=== PATIENT | male | born 1980 | race Asian ===

== ENCOUNTER 2017-08-11 13:11 | Emergency (ER) | payer OTHER ==
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
== END 2017-08-11 16:24 | disposition home or self-care (01) ==
LOC: ERS 13:11
DX: S20.219A Contusion of unspecified front wall of thorax, initial encounter (principal); F17.220 Nicotine dependence, chewing tobacco, uncomplicated; V43.52XA Car driver injured in collision with other type car in traffic accident, initial encounter
CPT/HCPCS: 71260; 72125; 74177